=== PATIENT | female | born 1960 | race Hispanic/Latino ===

== ENCOUNTER 2023-03-30 05:34 | Inpatient (IN) | payer BC ==
[2023-03-25 10:23] VITALS: BP 228/75
[2023-03-30] VITALS (25 sets, daily range): BP systolic 115–164; BP diastolic 37–66
[~2023-03-30] VITALS: Ht 149.9 cm; Wt 68.1 kg
[~2023-03-30 05:34] MED LIST: LISI10TA24 PO
[2023-03-30 09:47] LABS: CREATININE 0.4 mg/dL (0.5-1.5); POTASSIUM 4.1 mmol/L (3.5-5.1)
[2023-03-30] MEDS ORDERED: ACET-2079 PO (10:33)
[2023-03-30] MEDS ORDERED: CHOL500051 PO (10:33)
[2023-03-30] MEDS ORDERED: GABA300C PO (10:33)
[2023-03-30] MEDS ORDERED: CEFAZOLIN SODIUM 2 GM VIAL ONE (10:38)
[2023-03-30] MEDS ORDERED: LACTATED RINGERS 1000ML 1,000 ML IV ONE (10:38)
[2023-03-30] MEDS ORDERED: TRANEXAMIC ACID 1000MG/10ML ONE (12:08)
[2023-03-30] MEDS ORDERED: PROPOFOL 10 MG/ML 20ML VIAL IV ONE (13:25)
[2023-03-30] MEDS ORDERED: FENTANYL CITRATE PF 50 MCG/1 ML 2ML VIAL ONE ×2 (13:26→15:30)
[2023-03-30] MEDS ORDERED: ROCURONIUM 10MG/1ML SYR 10 MG/ML ML ONE (13:26)
[2023-03-30] MEDS ORDERED: CEFAZOLIN SODIUM 2 GM VIAL IVPB ONE (13:30)
[2023-03-30] MEDS ORDERED: ROPIVACAINE 0.5% 5MG/ML 30ML IJ ONE ×3 (13:40→13:41)
[2023-03-30] MEDS ORDERED: POTASSIUM CHLORIDE 20MEQ/100ML 100 ML IV PRN (14:00)
[2023-03-30] MEDS ORDERED: HYDROCODONE/ACETAMINOPHEN 5/325 MG TAB PO PRN (14:00)
[2023-03-30] MEDS ORDERED: POTASSIUM CHLORIDE 10% ELIXIR 20 MEQ/15 ML UDCUP PO PRN (14:00)
[2023-03-30] MEDS ORDERED: ONDANSETRON 4MG INJ IVP PRN (14:00)
[2023-03-30] MEDS ORDERED: KCL 20 MEQ ERTAB PO PRN (14:00)
[2023-03-30] MEDS ORDERED: EPHEDRINE SULFATE 50 MG/ML AMPULE ONE (14:08)
[2023-03-30] MEDS ORDERED: DEXAMETHASONE SOD PHOSPHATE 10MG/ML 1ML VIAL ONE (15:26)
[2023-03-30] MEDS ORDERED: ONDANSETRON 4MG INJ ONE (15:26)
[2023-03-30] MEDS ORDERED: GLYCOPYRROLATE 1 MG/5 ML SYRINGE ONE (15:33)
[2023-03-30] MEDS ORDERED: NEOSTIGMINE 5MG/5ML SYR IV ONE (15:33)
[2023-03-30] MEDS: ACETAMINOPHEN 1,000 MG/100 ML VIAL IV SCH ×2 (16:07→22:58)
[2023-03-30] MEDS ORDERED: MEPERIDINE-PF 25 MG/ML SYG ONE (16:20)
[2023-03-30] MEDS ORDERED: KETOROLAC 15MG/ML VIAL (15MG/ML) ONE (16:20)
[2023-03-30] MEDS ORDERED: METOCLOPRAMIDE 10 MG/2 ML VIAL ONE (17:03)
[2023-03-30] MEDS: IBUPROFEN 800MG + NS 250ML IV SCH (19:17)
[2023-03-30] MEDS: CEFAZOLIN SODIUM 2 GM VIAL IVPB SCH (21:20)
[2023-03-30] MEDS: 0.9%NACL 1000ML 1,000 ML IV SCH ×2 (21:20→23:47)
[2023-03-30] MEDS: GABAPENTIN 300 MG CAPSULE PO SCH (21:21)
[2023-03-30] MEDS: FAMOTIDINE 20MG TAB PO SCH (21:21)
[2023-03-31] VITALS (9 sets, daily range): BP systolic 117–187; BP diastolic 54–76
[2023-03-31] MEDS: MORPHINE 4 MG SYG IVP PRN ×3 (02:30→23:06)
[2023-03-31] MEDS: CEFAZOLIN SODIUM 2 GM VIAL IVPB SCH (03:00)
[2023-03-31 04:38] LABS: MEAN CORPUSCULAR HEMOGLOBIN 30.4 pg (27.0-33.0); MEAN CORPUSCULAR HGB CONC 31.8 g/dL (32.0-36.0); MEAN CORPUSCULAR VOLUME 95.7 fL (79-99); RED BLOOD CELL COUNT(AUTO) 3.45 MIL/uL (4.00-5.50); RED CELL DISTRIBUTION WIDTH 12.8 % (11.0-15.5); WHITE BLOOD COUNT (AUTO) 9.2 K/uL (4.8-10.8)
[2023-03-31 04:44] LABS: CREATININE 0.4 mg/dL (0.5-1.5); POTASSIUM 5.4 mmol/L (3.5-5.1)
[2023-03-31] MEDS: IBUPROFEN 800MG + NS 250ML IV SCH ×2 (05:17→12:16)
[2023-03-31] MEDS ORDERED: ACETAMINOPHEN 1,000 MG/100 ML VIAL IV ONE (08:24)
[2023-03-31] MEDS: ACETAMINOPHEN 1,000 MG/100 ML VIAL IV SCH (08:26)
[2023-03-31] MEDS: POLYETHYLENE GLYCOL 3350 17 GM POWD.PACK PO SCH (08:26)
[2023-03-31] MEDS: LISINOPRIL 10 MG TABLET PO SCH (08:27)
[2023-03-31] MEDS: FAMOTIDINE 20MG TAB PO SCH ×2 (08:27→19:16)
[2023-03-31] MEDS: GABAPENTIN 300 MG CAPSULE PO SCH ×2 (08:27→19:16)
[2023-03-31] MEDS: 0.9%NACL 1000ML 1,000 ML IV SCH (10:00)
[2023-03-31] MEDS: ENOXAPARIN SODIUM 30 MG/0.3 ML SQ SCH (12:17)
[2023-03-31] MEDS: HYDROCODONE/ACETAMINOPHEN 10/325 MG TAB PO PRN (19:18)
[2023-03-31] MEDS ORDERED: ASPIRIN 81 MG EC TAB PO SCH (21:00)
[2023-04-01 00:08] VITALS: BP 158/62
[2023-04-01] MEDS: HYDROCODONE/ACETAMINOPHEN 10/325 MG TAB PO PRN ×2 (05:18→19:19)
[2023-04-01 07:15] VITALS: BP 162/85
[2023-04-01 08:00] VITALS: BP 175/66
[2023-04-01] MEDS: LISINOPRIL 10 MG TABLET PO SCH (08:17)
[2023-04-01] MEDS: FAMOTIDINE 20MG TAB PO SCH ×2 (08:17→19:19)
[2023-04-01] MEDS: GABAPENTIN 300 MG CAPSULE PO SCH ×2 (08:17→19:19)
[2023-04-01] MEDS: POLYETHYLENE GLYCOL 3350 17 GM POWD.PACK PO SCH ×2 (08:18→08:19)
[2023-04-01] MEDS: ENOXAPARIN SODIUM 30 MG/0.3 ML SQ SCH (08:18)
[2023-04-01 11:54] VITALS: BP 150/64
[2023-04-01] MEDS: MORPHINE 4 MG SYG IVP PRN (13:01)
[2023-04-01 16:00] VITALS: BP 163/77
[2023-04-01 20:51] VITALS: BP 148/65
[2023-04-02] VITALS: BP 128/52
[2023-04-02 04:18] VITALS: BP 149/81
[2023-04-02] MEDS: HYDROCODONE/ACETAMINOPHEN 10/325 MG TAB PO PRN ×3 (05:51→19:31)
[2023-04-02 08:00] VITALS: BP 150/70
[2023-04-02] MEDS: FAMOTIDINE 20MG TAB PO SCH ×2 (08:31→19:31)
[2023-04-02] MEDS: GABAPENTIN 300 MG CAPSULE PO SCH ×2 (08:31→19:31)
[2023-04-02] MEDS: POLYETHYLENE GLYCOL 3350 17 GM POWD.PACK PO SCH (08:31)
[2023-04-02] MEDS: LISINOPRIL 10 MG TABLET PO SCH (08:31)
[2023-04-02] MEDS: ENOXAPARIN SODIUM 30 MG/0.3 ML SQ SCH (08:33)
[2023-04-02 12:08] VITALS: BP 129/47
[2023-04-02] MEDS ORDERED: BISACODYL 10 MG SUPP.RECT RC PRN (14:00)
[2023-04-02 16:00] VITALS: BP 136/57
[2023-04-02 20:00] VITALS: BP_SYST 145; BP_SYST 150; BP_DIAS 54; BP_DIAS 71
[2023-04-03] VITALS: BP 150/73
[2023-04-03] MEDS: HYDROCODONE/ACETAMINOPHEN 10/325 MG TAB PO PRN ×3 (01:41→13:55)
[2023-04-03 04:00] VITALS: BP 131/83
[2023-04-03 08:00] VITALS: BP 154/56
[2023-04-03] MEDS: GABAPENTIN 300 MG CAPSULE PO SCH ×2 (08:29→20:14)
[2023-04-03] MEDS: POLYETHYLENE GLYCOL 3350 17 GM POWD.PACK PO SCH (08:29)
[2023-04-03] MEDS: LISINOPRIL 10 MG TABLET PO SCH (08:29)
[2023-04-03] MEDS: FAMOTIDINE 20MG TAB PO SCH ×2 (08:29→20:14)
[2023-04-03] MEDS: ENOXAPARIN SODIUM 30 MG/0.3 ML SQ SCH (08:30)
[2023-04-03 11:39] VITALS: BP 117/52
[2023-04-03 16:00] VITALS: BP 127/47
[2023-04-03 20:00] VITALS: BP 154/43
[2023-04-04] VITALS: BP 151/44
[2023-04-04] MEDS: HYDROCODONE/ACETAMINOPHEN 10/325 MG TAB PO PRN ×5 (01:27→20:13)
[2023-04-04 08:00] VITALS: BP 129/38
[2023-04-04] MEDS: ENOXAPARIN SODIUM 30 MG/0.3 ML SQ SCH (09:45)
[2023-04-04] MEDS: GABAPENTIN 300 MG CAPSULE PO SCH ×2 (09:45→20:13)
[2023-04-04] MEDS: FAMOTIDINE 20MG TAB PO SCH ×2 (09:45→20:13)
[2023-04-04] MEDS: LISINOPRIL 10 MG TABLET PO SCH (09:45)
[2023-04-04] MEDS: POLYETHYLENE GLYCOL 3350 17 GM POWD.PACK PO SCH (09:46)
[2023-04-04 12:00] VITALS: BP 145/42
[2023-04-04 16:00] VITALS: BP 123/39
[2023-04-04] MEDS ORDERED: HYDROCODONE/ACETAMINOPHEN 5/325 MG TAB PO PRN (19:30)
[2023-04-04] MEDS ORDERED: ACETAMINOPHEN 325 MG TAB PO PRN (19:30)
[2023-04-04 20:00] VITALS: BP 159/93
[2023-04-05] VITALS: BP 122/51
[2023-04-05 08:00] VITALS: BP 129/64
[2023-04-05] MEDS: POLYETHYLENE GLYCOL 3350 17 GM POWD.PACK PO SCH (08:20)
[2023-04-05] MEDS: ENOXAPARIN SODIUM 30 MG/0.3 ML SQ SCH (08:20)
[2023-04-05] MEDS: LISINOPRIL 10 MG TABLET PO SCH (08:21)
[2023-04-05] MEDS: FAMOTIDINE 20MG TAB PO SCH (08:21)
[2023-04-05] MEDS: GABAPENTIN 300 MG CAPSULE PO SCH (08:22)
[2023-04-05] MEDS: HYDROCODONE/ACETAMINOPHEN 10/325 MG TAB PO PRN (09:39)
[2023-04-05 11:00] VITALS: BP 119/53
== END 2023-04-05 12:30 | DRG 470 ==
LOC: DAH 05:34 → DAHIP 05:35 → OBSVTOIN 05:35 → DAH 05:35 → 4AH 06:15
PROVIDERS: ADMIT Orthopaedic Surgery; ATTEND Orthopaedic Surgery
PROC: 0SRB03Z Replacement of Left Hip Joint with Ceramic Synthetic Substitute, Open Approach (ICD-10-PCS; principal; 2023-03-30 13:26)
DX: M16.12 Unilateral primary osteoarthritis, left hip (principal); F41.9 Anxiety disorder, unspecified; Z20.822 Contact with and (suspected) exposure to COVID-19
CPT/HCPCS: 36415; 72170; 73502; 73503; 80048; 85027; 87426; 87641; 93005; 97039; G0378; J1100; J1650; J1741; J1885; J2175; J2270; J2405; J2704; J2710; J2765; J2795; J3010; J3490; J7120

== ENCOUNTER 2025-02-03 14:43 | Emergency (ER) | payer OTHER, BC ==
[~2025-02-03] VITALS: Ht 149.9 cm; Wt 72.6 kg
[~2025-02-03 14:43] MED LIST changes: +ACET-2079 PO; +CHOL500051 PO; +GABA300C PO
--- NOTE | 2025-02-03 15:00 | NUR ---
PT IS IN RM-17 NOW.
--- NOTE | 2025-02-03 15:09 | ERN ---
General Chief Complaint: Mechanical Fall Stated Complaint: WORKERS COMP,MECHANICAL FALL,MULTIPLE COMPLAINTS Time Seen by MD: 14:45 Source: patient History of Present Illness Initial Comments PATIENT IS A 64-YEAR-OLD FEMALE COMING IN TO BE EVALUATED AFTER SHE HAD A FALL. PER PATIENT SHE WAS MOWING SOME PLANTS AND FELL DOWN. SHE STATES THAT SHE HIT HERSELF IN THE LEFT KNEE AND FACE. SHE STATES HER MAIN COMPLAINT IS IN THE LEFT KNEE. NO DEFORMITY NOTED. Allergies: Coded Allergies: No Known Drug Allergies (Unverified Allergy, Unknown, 03/25/23) Home Meds Reported Medications Gabapentin (Neurontin) 300 Mg Capsule, 300 MG PO BID, CAP 03/30/23 Cholecalciferol (Vitamin D3) (Vitamin D3) 125 Mcg Capsule, 125 MCG PO DAILY, CAP 03/30/23 Acetaminophen with Codeine (Acetaminophen-Cod #3 Tablet) 1 Each Tablet, 1 EACH PO Q6HPRN, TAB 03/30/23 Lisinopril (Lisinopril) 10 Mg Tablet, 10 MG PO DAILY, TAB 03/25/23 Past Medical History Past Medical History: Hypertension Past Surgical History: Other Surgical History Other: TODD HIP ROS Dictation CONSTITUTIONAL: NO CHILLS, NO FEVER, NO WEAKNESS, NO DIAPHORESIS, NO MALAISE. HEAD/FACE: NO SIGNS OF TRAUMA. EENT: NO EYE PAIN, NO BLURRED VISION, NO TEARING, NO DOUBLE VISION, NO EAR PAIN, NO EAR DISCHARGE, NO NOSE PAIN, NO NASAL CONGESTION, NO THROAT PAIN, NO THROAT SWELLING, NO MOUTH PAIN. RESPIRATORY: NO COUGH, NO ORTHOPNEA, NO SOB, NO STRIDOR, NO WHEEZING. CARDIOVASCULAR: NO CHEST PAIN, NO EDEMA, NO PALPITATIONS, NO SYNCOPE. GASTROINTESTINAL/ABDOMINAL: NO ABDOMINAL PAIN, NO CONSTIPATION, NO DIARRHEA, NO NAUSEA, NO VOMITING. GENITOURINARY: NO ABNORMAL DISCHARGE, NO DYSURIA, NO FREQUENT URINATION, NO HEMATURIA. NO COMPLAINTS OF PAIN IN THE GENITALS. MUSCULOSKELETAL: NO BACK PAIN, NO GOUT, JOINT PAIN, NO JOINT SWELLING, NO MUSCLE PAIN, NO MUSCLE STIFFNESS, NO NECK PAIN. INTEGUMENTARY: NO CHANGE IN COLOR, NO CHANGE IN HAIR/NAILS, NO DRYNESS, NO LESION, NO LUMPS, NO RASH. NEUROLOGICAL/PSYCH: NO ANXIETY, NOT DEPRESSED, NO EMOTIONAL PROBLEM, NO HEADACHE, NO NUMBNESS, NO PRE-EXISTING DEFICIT, NO HISTORY OF SEIZURES, NO TREMORS, NO WEAKNESS. HEMATOLOGIC/LYMPHATIC: NOT ANEMIC, NO HISTORY OF BLOOD CLOTS, NO APPARENT BLEEDING, NO BRUISING, GLANDS NOT SWOLLEN. ALL SYSTEMS NEGATIVE, EXCEPT NOTED. Physical Exam Physical Exam Dictation VITAL SIGNS: REVIEWED. GENERAL APPEARANCE: ALERT, ORIENTED X3, NO ACUTE DISTRESS, OBESE. HEAD AND FACE: NON-TRAUMATIC. EYES: PERRL, PINK CONJUNCTIVAS, EYELID NO TRAUMA, ANTERIOR CHAMBER CLEAR. EARS: PINNAS INTACT AND NO SIGNS OF TRAUMA OR ERYTHEMA. EAR CANALS CLEAR AND NO DISCHARGE. TMS NO ERYTHEMA. NOSE: NO DISCHARGE, TENDERNESS SWOLLEN OROPHARYNX: MOUTH NORMAL, TEETH NO CARIES, TONGUE PINK. PHARYNX CLEAR, NO ERYTHEMA. TONSILS NO EXUDATES, NO ABSCESSES NOTED. MUCOUS MEMBRANE MOIST. NECK: SUPPLE, NON-TENDER, NO THYROMEGALY, NO MASSES, NO JVD, NO BRUITS. BREAST: DEFERRED. CHEST: NO TENDERNESS, NO CREPITUS, NO PARADOXICAL MOVEMENT, NO RETRACTIONS. LUNGS: CLEAR, WELL-VENTILATED, SYMMETRIC, NO RALES, NO WHEEZING, NO RHONCHI, NO STRIDOR, GOOD BREATH SOUNDS BILATERALLY. HEART: REGULAR RATE, REGULAR RHYTHM, NO MURMUR, NO GALLOPS. VASCULAR: NO PERIPHERAL EDEMA. ABDOMEN: SOFT, POSITIVE BOWEL SOUNDS, NONDISTENDED, NO GUARDING, NONTENDER, NO REBOUND, NO MASSES NO HEPATOMEGALY, NO SPLENOMEGALY, NO BERGERON'S SIGN, NO HERNIAS. RECTAL: DEFERRED. GENITAL: DEFERRED. NEUROLOGICAL: NORMAL SPEECH, GROSS MOTOR FUNCTION INTACT, GROSS SENSORY FUNCTION INTACT. MUSCULOSKELETAL: NECK NONTENDER, FULL RANGE OF MOTION, BACK NONTENDER, FULL RANGE OF MOTION. EXTREMITIES: NONTENDER, FULL RANGE OF MOTION. LEFT KNEE PAIN ON PALPATION, FLEXION AND EXTENSION SKIN: COLOR PINK, DRY, NO TURGOR, NO RASH, NO LACERATIONS, NO ABRASIONS, NO CONTUSIONS. LYMPHATICS: DEFERRED. Results Laboratory and Microbiology Labs Reviewed?: Yes EKG/XRAY/US/CT/MRI X-RAY Comment [address] [place] [id number] IMAGING REPORT Signed PATIENT: LANDEN MATUTE MR#: [id number] : 1960 SEX: F AGE: 64 LOCATION: [facility] ORDER 150 STATUS: [facility] REPORT#: [id number] SERVICE 1506 REASON: FALL ORDERING PHYSICIAN: FRANCIE PEREZ MD PROCEDURE: NASAL 3VW - NASAL BONES COMP 3+VWS Exam Type: NASAL BONES COMP 3+VWS Clinical Information: FALL Comparison: None Findings and impression: Fracture involving the nasal bone tip. No other abnormalities. DICTATED BY: VERÓNICA BUSH MD DATE: 02/03/25 164 ELECTRONICALLY SIGNED BY: VERÓNICA BUSH MD DATE: 02/03/251647 [address] [id number] IMAGING REPORT Signed PATIENT: LANDEN MATUTE MR#: [id number] : 1960 SEX: F AGE: 64 LOCATION: [facility] ORDER 150 STATUS: REG ER REPORT#: [id number] SERVICE 1506 REASON: FALL ORDERING PHYSICIAN: FRANCIE PEREZ MD PROCEDURE: KNEE 3V LT - KNEE 3VWS LT Exam Type: KNEE 3VWS LT Clinical Information: FALL Comparison: None Findings and impression: Nondistracted midpatellar fracture with associated hemarthrosis. No other abnormalities. DICTATED BY: VERÓNICA BUSH MD DATE: 02/03/25 1600 ELECTRONICALLY SIGNED BY: VERÓNICA BUSH MD DATE: 02/03/25 1603 [facility] MDM: DIFFERENTIAL DIAGNOSIS: PATELLAR FRACTURE, NASAL FRACTURE, RATIONALE: TESTS CONSIDERED AND ORDERED SECONDARY TO SHARED DECISION MAKING INCLUDE: LABS, ECG AND RADIOLOGY PATIENT IS A 64-YEAR-OLD FEMALE COMING IN TO BE EVALUATED FOR LEFT KNEE PAIN. X-RAY DISCLOSE A PATELLAR FRACTURE. PATIENT ALSO STATES THAT SHE HAS A NASAL DISCLOSE THE HE WAS A FRACTURE. SPOKE WITH THE IN REGARDS TO THE PATELLAR FRACTURE PATIENT WAS OKAY TO FOLLOW UP OUTPATIENT. PATIENT WAS ALSO REFERRED TO DR. LOPEZ ENT NASAL FRACTURE. KNEE IMMOBILIZER IN PLACE. ED Course Orders Procedure Category Date Status Time Knee 3vws Lt RAD 02/03/25 Resulted 15:06 Nasal Bones Comp 3+Vws RAD 02/03/25 Resulted 15:06 Tramadol Hcl (Ultram) PHA 02/03/25 Complete 15:30 Knee Immobilizer SANDHYA 02/03/25 In Process 15:18 Losartan 25 Mg Tablet PHA 02/03/25 Complete (Cozaar 25mg Tab) 16:00 Current Medications Medications (Trade) Dose Ordered Sig/Anna Route PRN Reason Start Time Stop Time Status Last Admin Dose Admin Losartan Potassium (CozAAR 25MG TAB) 25 mg ONCE ONCE PO 02/03/25 16:00 02/03/25 16:01 DC 02/03/25 16:01 Tramadol HCl (UltRAM) 50 mg ONCE ONCE PO 02/03/25 15:30 02/03/25 15:31 DC 02/03/25 15:31 Vital Signs Date Time Temp Pulse Resp B/P (MAP) Pulse Ox O2 Delivery O2 Flow Rate FiO2 02/03/25 17:13 67 16 180/61 96 Room Air* 0 21 02/03/25 15:54 82 18 194/76 98 Room Air* 0 21 02/03/25 15:00 98.2 81 20 200/79 97 Room Air* 0 21 02/03/25 14:51 98.2 81 16 200/79 0 DX & DISP Disposition: Discharge Departure Impression: Primary Impression: Patellar fracture Additional Impressions: Nasal bone fracture, Fall Condition: Stable Scripts Acetaminophen with Codeine (Acetaminophen-Cod #3 Tablet) 300 Mg-30 Mg Tablet 1 TAB PO Q6HPRN PRN for pain for 4 Days, #12 TAB 0 Refills Prov: FRANCIE PEREZ MD 02/03/25 Additional Instructions: FOLLOW-UP WITH PRIMARY CARE PROVIDER IN 1 TO 2 DAYS. TAKE MEDICATIONS DIRECTED HERE IN THE EMERGENCY ROOM. OKAY TO CONTINUE HOME MEDICATIONS UNLESS OTHERWISE DISCUSSED DURING YOUR VISIT IN THE EMERGENCY ROOM TODAY. RETURN TO YOUR NEAREST EMERGENCY ROOM IF SYMPTOMS WORSEN OR IF THERE IS NO IMPROVEMENT. CALL 911 IF YOU NEED IMMEDIATE ASSISTANCE. TAKE TYLENOL [id number] NEEDED AND IF NO CONTRAINDICATIONS ARE PRESENT. INCREASE ORAL HYDRATION. A WOUND CULTURE OR URINE CULTURE WAS ORDERED HERE IN THE EMERGENCY ROOM DEPARTMENT PLEASE FOLLOW-UP WITH PRIMARY CARE PROVIDER AND ADVISE THEM TO GET REPEAT PORTS FROM OUR FACILITY. IF YOU HAD ANY SUHA WRAP/SPLINTS THAT WERE APPLIED HERE, PLEASE DO NOT REMOVE THEM UNTIL YOU SEE YOUR PRIMARY CARE OR SPECIALTY. REFERRALS: Referrals: ALFRED VERMA MD (PCP) MIRIAM DICKINSON MD, JAMES T MD Time of Disposition: 18:26 FRANCIE PEREZ MD Feb 03, 2025 15:09
[2025-02-03] MEDS: traMADol HCL 50 MG TABLET PO ONE (15:31)
--- NOTE | 2025-02-03 15:45 | NUR ---
PT'S BP REMAINS HIGH, CURRENTLY 194/76. SHE DID NOT TAKE HER 25 MG LOSARTAN TODAY. INFORMED MD.WILL GIVE HER HER USUAL DOSE WHEN SHE RETURNS FROM XRAY.
[2025-02-03] MEDS: LoSARTan 25 MG TABLET PO ONE (16:01)
--- NOTE | 2025-02-03 16:03 | HMCIMG ---
Exam Type: KNEE 3VWS LT Clinical Information: FALL Comparison: None Findings and impression: Nondistracted midpatellar fracture with associated hemarthrosis. No other abnormalities.
--- NOTE | 2025-02-03 16:25 | NUR ---
PT RETURNED FROM XRAY.LOSARTAN 25 MG PO GIVEN.
--- NOTE | 2025-02-03 16:48 | HMCIMG ---
Exam Type: NASAL BONES COMP 3+VWS Clinical Information: FALL Comparison: None Findings and impression: Fracture involving the nasal bone tip. No other abnormalities.
[2025-02-03] MEDS ORDERED: ACET-2079 PO (18:28)
[2025-02-03 18:44] VITALS: BP 164/58; PULSE 74; RESP 16; TEMP 98.2; O2SAT 96
--- NOTE | 2025-02-03 18:44 | NUR ---
Mio brink in [facility] - 02/03/25 at 1845 by JUAN CARLOS PT RETURNED FROM CT SCAN
== END 2025-02-03 19:00 | disposition home or self-care (01) ==
LOC: EDH 14:43
DX: S02.2XXA Fracture of nasal bones, initial encounter for closed fracture (principal); S82.002A Unspecified fracture of left patella, initial encounter for closed fracture; I10 Essential (primary) hypertension; Z79.899 Other long term (current) drug therapy; W18.39XA Other fall on same level, initial encounter; Y93.89 Activity, other specified; Y92.89 Other specified places as the place of occurrence of the external cause; Y99.8 Other external cause status
CPT/HCPCS: 29505; 70160; 73562; 99284